=== PATIENT | male | born 1985 | race Caucasian/White ===

== ENCOUNTER 2017-02-26 18:47 | Emergency (ER) | payer OTHER ==
[~2017-02-26] VITALS: Ht 182.9 cm; Wt 88.5 kg
[2017-02-26 18:52] VITALS: BP 154/92
--- NOTE | 2017-02-26 19:18 | ED UPPER/LOWER EXTREMITY COMPL ---
History of Present Illness General Chief Complaint: Lower Extremity Problems Stated Complaint: L LEG PAIN AND SWELLING, BRUISING Source: patient Exam Limitations: no limitations Vital Signs & Intake/Output Vital Signs & Intake/Output Vital Signs Date Time Temp Pulse Resp B/P B/P Pulse O2 O2 Flow FiO2 Mean Ox Delivery Rate 02/26 1852 98.4 86 18 154/92 98 Room Air Allergies Coded Allergies: No Known Allergies (02/26/17) Triage Note: 31 YO MALE TO TRIAGE C/O PAIN BEHIND L KNEE, STATES NO INJURY, IT JUST STARTED HURTING WHEN HE WAS GETTING OUT OF HIS TRUCK. Triage Nurses Notes Reviewed? yes Onset: Abrupt Duration: constant Timing: single episode today Severity: moderate Severity Numbers: 5 HPI: Patient is a 31-year-old male with an unremarkable past medical history of since emergency room stating that this afternoon while getting out of his car to ambulate he started walking pushing off with his left foot and noted acute onset of pain to the back of his calf Patient has associated surrounding bruising and swelling. Denies any trauma or fall. Did not take any medications prior to arrival. Patient at rest has no complaints. Patient states that calf raises make worse and walking makes worse. Denies any distal swelling or paresthesia or pain (GABO DIAL) Past History Travel History Traveled to [place] past 21 day No Medical History Any Pertinent Medical History? none Neurological: NONE EENT: NONE Cardiovascular: NONE Respiratory: NONE Gastrointestinal: NONE Hepatic: NONE Renal: NONE Musculoskeletal: NONE Psychiatric: NONE Endocrine: NONE Blood Disorders: NONE Cancer(s): NONE HOSPICE VOLUNTEER/Reproductive: NONE Surgical History Surgical History: non-contributory Psychosocial History What is your primary language Bel[place]ian Tobacco Use: Never used Family History Hx Contributory? No (GABO DIAL) Review of Systems Review of Systems Constitutional: Reports: no symptoms. EENTM: Reports: no symptoms. Respiratory: Reports: no symptoms. Cardiovascular: Reports: no symptoms. Gastrointestinal/Abdominal: Reports: no symptoms. Genitourinary: Reports: no symptoms. Musculoskeletal: Reports: see HPI, joint pain, muscle pain. Skin: Reports: no symptoms. Neurological/Psychological: Reports: no symptoms. Hematologic/Endocrine: Reports: no symptoms. Immunological: Reports: no symptoms. All Other Systems: Reviewed and Negative (GABO DIAL) Physical Exam Physical Exam General Appearance: no apparent distress, alert Neurologic/Tendon: normal sensation, normal motor functions, normal tendon functions, responds to pain Skin: intact Comments: Well-developed well-nourished patient in no apparent distress. HEENT: Atraumatic, extraocular motion intact Neck: Supple, FROM Back: FROM Extremities-left knee full active range of motion noted no joint line point tenderness Negative valgus stress testing of varus stress test Mild pain noted upon resisted range of motion of knee flexion Left ankle normal inspection nontender 5 out of 5 resisted range of motion noted with mild pain with plantarflexion Left foot-normal inspection no swelling Left upper lower extremity dermatomes intact pedal pulse +2 Neuro: awake, alert, and oriented to person, Skin: Warm & dry;No appreciable rash on exposed skin Psych: Mood affect normal, normal memory normal judgment. Diagram Legs Front/Back 1) NOTED TENDERNESS AND ECCHYMOSIS (GABO DIAL) Progress Differential Diagnosis: arterial insufficiency, compartment syndrome, contusion, dislocation, DVT, fracture, gout, septic arthritis, sprain, tendon injury Plan of Care: Current Medications Sig/My Start time Last Medication Dose Stop Time Status Admin Ibuprofen 600 MG ONCE ONE 02/26 1945 UNVr (Motrin) 02/26 1946 Patient has no current signs of osseous injury or joint line tenderness no laxity on exam. Patient has reproducible pain to the gastrocnemius and soleus region no concerns of tendon deficit. Patient has concerns of muscular strain. No concerns of DVT (GABO DIAL) Departure Departure Disposition: HOME OR SELF CARE Condition: Stable Clinical Impression Primary Impression: Strain of calf muscle Referrals: MARINE LIAO,EFREN (PCP/Family) Additional Instructions: As discussed BEGIN icing the area directly 20 minutes every 2 hours began over- the-counter ibuprofen for pain and inflammation. If no better in one week follow-up with orthopedic Dr. Sánchez for further evaluation and treatment If symptoms worsen return to emergency room Departure Forms: Customer Survey General Discharge Information (GABO DIAL) PA/FINANCIAL SUPERVISOR Co-Sign Statement Statement: ED Attending supervision documentation- [] I saw and evaluated the patient. I have also reviewed all the pertinent lab results and diagnostic results. I agree with the findings and the plan of care as documented in the PA's/FINANCIAL SUPERVISOR's documentation. [x] I have reviewed the ED Record and agree with the PA's/FINANCIAL SUPERVISOR's documentation. [] Additions or exceptions (if any) to the PAs/FINANCIAL SUPERVISOR's note and plan are summarized below: [] (CARLOS BRADEN DO)
== END 2017-02-26 19:45 ==
LOC: ERH 18:47
DX: S86.912A Strain of unspecified muscle(s) and tendon(s) at lower leg level, left leg, initial encounter (principal); X58.XXXA Exposure to other specified factors, initial encounter; Y93.01 Activity, walking, marching and hiking; Y92.9 Unspecified place or not applicable
CPT/HCPCS: 99282